=== PATIENT | male | born 1950 | race Caucasian/White ===

== ENCOUNTER 2024-04-11 09:06 | Outpatient (CLI) | payer MEDICARE, BC, SELFPAY ==
--- OUTSIDE RECORDS SUMMARY | 2024-04-11 09:14 | XMS_ITS | Patient Health Record ---
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 Name Role Phone CLARISSA ACUNA Unavailable [phone] Allergies No Known Allergies Reason For Referral No Information Medications Medication SIG (Take, Route, Frequency, Duration) Notes Start Date End Date Status Divalproex Sodium ER 250 MG TAKE TWO TAB LETS BY MOUTH EVERY DAY Oral for 90 Active Tamsulosin HCl 0.4 MG TAKE ONE CAPSULE B Y MOUTH EVERY DAY AFTER A MEAL Oral for 90 Active traZODone HCl 50 MG TAKE TWO TABLETS BY MOUTH AT BEDTIME NEEDED FOR SLEEP Oral for 90 Active DULoxetine HCl 60 MG TAKE ONE CAPSULE BY MOUTH EVERY DAY Oral for 90 Active Warfarin Sodium 5 MG Oral for 90 Active Allopurinol 100 MG Oral for 90 Active Omeprazole 20 MG TAKE ONE CAPSULE BY MOUTH EVERY DAY BEFORE A MEAL Oral for 90 Active Social History Tobacco Use: Social History Observation Description Date Details (start date - stop date) Former Smoker NA - NA Tobacco Use/Smoking Question Answer Notes Are you a: former smoker How long has it been since you last smoked? 5-10 years Alcohol Screen Question Answer Notes Did you have a drink contain ing alcohol in the past year? Yes How often did you have a dri nk containing alcohol in the past year? 2 to 3 times a week (3 points) How many drinks did you have on a typical day when you were drinking in the past year? 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 Problem Gout (43974319) Gout, unspecifie d (M10.9) Active confirmed Problem Localized, primary osteoarthritis of the ankle and/or foot (996210738) Primary osteoarthritis, right ankle and foot (M19.071) Active confirmed Problem Localized, primary osteoarthritis of the ankle and/or foot (430481677) Primary osteoarthritis, left ankle and foot (M19.072) Active confirmed Problem Arthralgia of the ankle and/or foot (436644209) Pain in left ankle and joints of left foot (M25.572) Active confirmed Vital Signs Blood pressure diastolic 80 mm Hg 07/09/2023 Height 5' 8 in 07/09/2023 Blood pressure systolic 130 mm Hg 07/09/2023 Weight 187 lbs 07/09/2023 BMI 28.43 kg/m2 07/09/2023 Procedures Procedure Date Ordered Date Performed Result Body Sit e Routine Foot Care ( Nails, Calluses) 07/09/2023 07/09/2023 N/A Encounters Encounter Location Date Provider Diagnosis [facility] [address] [facility] [address] [place] [address] 05/19/2023 CLARISSA PREBISH Gout, unspecified M1 0.9 ; Acquired keratosis [keratoderma] palmaris et plantaris L85.1 ; Pain in left ankle and joints of left foot M25.572 ; Primary osteoarthritis, right ankle and foot M19.071 and Primary osteoarthritis, left ankle and foot M19.072 [facility] [address] [place] [address] 07/09/2023 CLARISSA PREBISH Gout, unspecified M1 0.9 ; Atherosclerosis of [place] arteries of extremities with rest pain, bilateral legs I70.223 ; Acquired keratosis [keratoderma] palmaris et plantaris L85.1 ; Pain in left ankle and joints of left foot M25.572 ; Primary osteoarthritis, right ankle and foot M19.071 ; Primary osteoarthritis, left ankle and foot M19.072 ; Tinea unguium B35.1 ; Pain in right toe(s) M79.674 and Pain in left toe(s) M79.675 Assessments Encounter Date Diagnosis (ICD Code) Assessment Notes Treat ment Notes Treatment Clinical Notes 05/19/2023 Acquired keratosis [keratoderma] palmaris et plantaris (ICD-10 - L85.1) 05/19/2023 Gout, unspecified (ICD-10 - M10.9) The patient's callus was debrided without incident. Fungal debris was excavated from the nail borders. Discussed proper foot care at home including daily foot checks. Educated the patient on the importance of strict watch over the advancement of the patient's medical condition. Using good supportive shoes with inserts or bracing. Moisturize skin daily. F/u prn. 07/09/2023 Atherosclerosis of [place] arteries of extremities with rest pain, bilateral legs (ICD-10 - I70.223) 07/09/2023 Gout, unspecified (ICD-10 - M10.9) 07/09/2023 Acquired keratosis [keratoderma] palmaris et plantaris (ICD-10 - L85.1) The patient's toe nails were debrided without incident. Fungal debris was excavated from the nail borders. Discussed proper foot care at home including daily foot checks. Educated the patient on the importance of strict watch over the advancement of the patient's medical condition. Using good supportive shoes with inserts or bracing. Moisturize skin daily. 05/19/2023 Pain in left ankle a nd joints of left foot (ICD-10 - M25.572) 07/09/2023 Pain in left ankle a nd joints of left foot (ICD-10 - M25.572) 05/19/2023 Primary osteoarthritis, right ankle and foot (ICD-10 - M19.071) 05/19/2023 Primary osteoarthritis, left ankle and foot (ICD-10 - M19.072) 07/09/2023 Primary osteoarthritis, right ankle and foot (ICD-10 - M19.071) 07/09/2023 Primary osteoarthritis, left ankle and foot (ICD-10 - M19.072) 07/09/2023 Tinea unguium (ICD-1 0 - B35.1) 07/09/2023 Pain in right toe(s) (ICD-10 - M79.674) 07/09/2023 Pain in left toe(s) (ICD-10 - M79.675) Plan Of Treatment No Information Insurance Providers Payer Name Payer Address Payer Phone Subscriber Number Group Number Insured Name Patient Relationship to Insured Coverage Start Date Coverage End Date MEDICARE PART B [address] [place] [id number] Adán Choi Self - patient is the insured [facility] PPO/HMO [address] [place], [place] [id number] Adán Choi Self - patient is the insured Medical (General) History Medical History History ICD Code anxiety depression Surgical History Surgery Date(Month/Year) Rt shoulder Rt hip left leg Hospitalization History Reason Date(Month/Year) Hip Surgery leg surgery shoulder surgery
--- OUTSIDE RECORDS SUMMARY | 2024-04-11 09:14 | XMS_ITS | Data Portability ---
Author Organization [facility] - [place], [place] (Inactive) Address [address] [place] [address] Care Team Providers Care Overhead Door Technician Name Role Phone PHILIPP DIANA Primary Care Provider [phone] Assessment No assessment recorded. Plan of Treatment Reminders Order Date Submit Date Provider Last Modified By Organization Details Last Modified Time Details Appointments Est Patient 2023 08:40A Lucero Diana, CAR MECHANIC HELPER Not available Not available Not available AWV 20 2024 11:00A Lucero Diana NP Not available Not available Not available Lab prothromb in time 2022 023 PARADIS [facility], [address] [place] [address], [address], 06/27/2022 09:38:04 prothromb in time 2022 023 TINO [facility], [address] [place], [address], 07/14/2022 09:24:57 uric acid, serum or plasma 2022 023 [email or web address] [facility], [address] [place], [address], 06/01/2023 17:45:38 prothromb in time 2022 023 [email or web address] [facility], [address], [place], [address], 06/01/2023 17:45:37 CBC w/ auto diff 2022 023 [email or web address] [facility], [address], [place], [address], 06/01/2023 17:45:38 lipid panel, serum 2022 023 [email or web address] [facility], [address], [place], [address], 06/01/2023 17:45:38 CMP, serum or plasma 2022 023 TINO [facility], [address], [place], [address], 05/25/2023 13:16:07 TSH, ultra-sen sitive, serum 2022 023 [email or web address] [facility], [address], [place], [address], 06/01/2023 17:45:38 T4, free, serum 2022 023 [email or web address] [facility], [address], [place], [address], 06/01/2023 17:45:39 prothromb in time 2023 024 TINO [facility], [address], [place], [address], 08/03/2023 08:25:01 Referral None recorded. Procedures None recorded. Surgeries None recorded. Imaging None recorded. Medication Orders Medrol (John Paul) 4 mg tablets in a dose pack 2023 024 TINO [facility], [address] [place] [address], [place] ([place], [address], 07/26/2023 14:08:03 azithromy rafaela 250 mg tablet 2023 024 [email or web address] [facility], [address] [place] [address], [place], [address], 08/02/2023 13:24:43 allopurin ol 100 mg tablet 2023 024 [email or web address] [facility], [address] [place] [address], [place], [address], 08/02/2023 14:15:54 Patient TargetsNo targets recorded. Patient Instructions Encounter Date Encounter Id Patient Instructions Last Modified By Organization Details Last Modified Time 05/24/2023 [id number] learning about frailty Not available 05/24/2023 13:30:59 medical record request* [email or web address] Not available 06/08/2023 16:32:11 medical record request* [email or web address] Not available 06/08/2023 16:32:11 It was good to s ee you in the office today for your Medicare Annual Wellness Visit. You have been provided some information on healthy nutrition, including a diet rich in fruits and vegetables, minimizing simple carbohydrates, salt, and saturated fats. I want to encourage regular cardiovascular exercise such as walking at least 30 minutes daily, 5 times per week. Please remember to schedule any preventive health measures that we talked about today. You have also been provided education on fall prevention and community-based lifestyle interventions to help reduce health risks and promote healthy living in your Annual Wellness folder. Screening Recommendations 1. Vaccines Pneumonia: {{N/A Ordered Recom mended today Next one No further need* Pt. refused - all risks outlined.}} Influenza: {{N/A Ordered Recom mended today This Fall Next Fall* Pt. refused - all risks outlined.}} 2. Colorectal Cancer Screening: {{Colonoscopy (every 10 years) Cologuard (every 3 years) IFOB (every year)}} {{Ordered Recommend ed today Next Screening No further screening necessary at this time Pt. refused - all risks outlined.*}} 3. Annual Prostate Screening 4. Annual Depression Screening 5. Annual Alcohol Screening 6. Annual Fall Risk Screening 7. Annual Health Risk Assessment Not available 05/24/2023 13:33:22 07/26/2023 [id number] advance care planning: care instructions Not available 07/26/2023 13:58:42 advance directiv es: care instructions Not available 07/26/2023 13:58:42 medical record request* [email or web address] Not available 08/02/2023 11:55:03 dementia: care instructions Not available 07/26/2023 14:05:01 learning about m ood disorders Not available 07/26/2023 13:58:42 learning about depression screening Not available 07/26/2023 13:58:42 learning about frailty Not available 07/26/2023 13:58:42 medical record request* [email or web address] Not available 08/02/2023 11:55:10 upper respirator y infection (cold): care instructions Not available 07/26/2023 14:07:56 It was good to see you in the office today for your Medicare Annual Wellness Visit. You have been provided some information on healthy nutrition, including a diet rich in fruits and vegetables, minimizing simple carbohydrates, salt, and saturated fats. I want to encourage regular cardiovascular exercise such as walking at least 30 minutes daily, 5 times per week. Please remember to schedule any preventive health measures that we talked about today. You have also been provided education on fall prevention and community-based lifestyle interventions to help reduce health risks and promote healthy living in your Annual Wellness folder. Screening Recommendations 1. Vaccines Pneumonia: {{N/A Ordered Recom mended today Next one No further need* Pt. refused - all risks outlined.}} Influenza: {{N/A Ordered Recom mended today This Fall Next Fall* Pt. refused - all risks outlined.}} 2. Colorectal Cancer Screening: {{Colonoscopy (every 10 years) Cologuard (every 3 years) IFOB (every year)}} {{Ordered Recommend ed today Next Screening No further screening necessary at this time Pt. refused - all risks outlined.*}} 3. Annual Prostate Screening 4. Annual Depression Screening 5. Annual Alcohol Screening 6. Annual Fall Risk Screening 7. Annual Health Risk Assessment Not available 07/26/2023 14:05:25 Reason for Referral None Reported. Results Created Date Observation Date Name Description Value Unit Range Abnormal Flag Note LastModifiedBy Organization Detail LastModifiedTime 06/26/19 23 06/27/2022 PROTH ROMBI N TIME (PT) INR 1.3 0.9-1. 2 above high normal Refer ence inter ke is for non-a ntico agula rosibel patie nts. Sugge sted INR thera peuti c range for Vitam in K antag onist thera py: Stand amy Dose (mode rate inten sity thera peuti c range ): 2.0 - 3.0 Highe r inten sity thera peuti c range 2.5 - 3.5 Not Available [facility] ([facility]) [address] [place], [address], 06/27/2022 09:38:03 06/26/19 23 06/27/2022 PROTH ROMBI N TIME (PT) prothrombin time 13.2 sec 9.1-12 .0 above high normal Not Available [facility] ([facility]) [address] [place], [address], 06/27/2022 09:38:03 07/13/19 23 07/14/2022 PROTH ROMBI N TIME (PT) PROTI ME W/INR INR 1.8 0.9-1. 2 high Refer ence inter ke is for non-a ntico agula rosibel patie nts. Sugge sted INR thera peuti c range for Vitam in K antag onist thera py: Stand amy Dose (mode rate inten sity thera peuti c range ): 2.0 - 3.0 Highe r inten sity thera peuti c range 2.5 - 3.5 Not Available [facility] [address] [place], [address], 07/14/2022 09:24:57 07/13/1907/14/2022 PROTH ROMBI N TIME (PT) PROTI ME W/INR prothrombin time 18.0 sec 9.1-12 .0 high Not Available [facility] [address] [place], [address], 07/14/2022 09:24:57 07/30/1907/31/2022 PROTH ROMBI N TIME (PT) PROTI ME W/INR INR 1.4 0.9-1. 2 high Refer ence inter ke is for non-a ntico agula rosibel patie nts. Sugge sted INR thera peuti c range for Vitam in K antag onist thera py: Stand amy Dose (mode rate inten sity thera peuti c range ): 2.0 - 3.0 Highe r inten sity thera peuti c range 2.5 - 3.5 Not Available [facility] [address], [address], 07/31/2022 09:25:47 07/30/19 23 07/31/2022 PROTH ROMBI N TIME (PT) PROTI ME W/INR prothrombin time 14.2 sec 9.1-12 .0 high Not Available [facility] [address], [address], 07/31/2022 09:25:47 08/15/19 23 08/15/2022 PROTH ROMBI N TIME (PT) PROTI ME W/INR INR 3.4 0.9-1. 2 high Refer ence inter ke is for non-a ntico agula rosibel patie nts. Sugge sted INR thera peuti c range for Vitam in K kristin ontaj thera py: Stand amy Dose (mode rate inten sity thera peuti c range ): 2.0 - 3.0 Highe r inten sity thera peuti c range 2.5 - 3.5 Not Available [facility] [address] , [place], [address], 08/15/2022 10:18:35 08/15/19 23 08/15/2022 PROTH ROMBI N TIME (PT) PROTI ME W/INR prothrombin time 35.1 sec 9.1-12 .0 high Not Available [facility] [address], [place], [address], 08/15/2022 10:18:35 09/01/19 23 09/01/2022 PROTH ROMBI N TIME (PT) INR 1.7 0.9-1. 2 above high normal Refer ence inter ke is for non-a ntico agula rosibel patie nts. Sugge sted INR thera peuti c range for Vitam in K kristin ontaj thera py: Stand amy Dose (mode rate inten sity thera peuti c range ): 2.0 - 3.0 Highe r inten sity thera peuti c range 2.5 - 3.5 Not Available [facility] ([facility]) [address] [place], [address], 09/01/2022 09:38:22 09/01/19 23 09/01/2022 PROTH ROMBI N TIME (PT) prothrombin time 18.1 sec 9.1-12 .0 above high normal Not Available [facility] ([facility]) [address] [place], [address], 09/01/2022 09:38:22 05/24/20 23 05/25/2023 PROTH ROMBI N TIME (PT) PROTI ME W/INR INR 2.4 0.9-1. 2 high Refer ence inter ke is for non-a ntico agula rosibel patie nts. Sugge sted INR thera peuti c range for Vitam in K antag onist thera py: Stand amy Dose (mode rate inten sity thera peuti c range ): 2.0 - 3.0 Highe r inten sity thera peuti c range 2.5 - 3.5 Not Available [facility] [address] [place], [address], 05/25/2023 13:16:07 05/24/20 23 05/25/2023 PROTH ROMBI N TIME (PT) PROTI ME W/INR prothrombin time 25.1 sec 9.1-12 .0 high Not Available [facility] [address], [address], 05/25/2023 13:16:07 05/24/20 23 05/25/2023 CBC (LAVE NDER) WBC 7.1 x10e3 /uL 3.9 - 10.0 Not Available [facility] [address] , [place], [address], 05/25/2023 13:16:09 05/24/20 23 05/25/2023 CBC (LAVE NDER) RBC 4.71 x10e6 /uL 3.93 - 6.08 Not Available [facility] [address] , [place], [address], 05/25/2023 13:16:09 05/24/20 23 05/25/2023 CBC (LAVE NDER) hemoglobin 14.3 g/dL 11.2 - 17.5 Not Available [facility] [address] [place], [address], 05/25/2023 13:16:09 05/24/20 23 05/25/2023 CBC (LAVE NDER) hematocrit 43.6 % 34.2 - 51.4 Not Available [facility] [address], [place], [address], 05/25/2023 13:16:09 05/24/20 23 05/25/2023 CBC (LAVE NDER) MCV 93 fL 79 - 100 Not Available [facility] [address], [place], [address], 05/25/2023 13:16:09 05/24/20 23 05/25/2023 CBC (LAVE NDER) MCH 30.4 pg 25.6 - 32.3 Not Available [facility] [address], [place], [address], 05/25/2023 13:16:09 05/24/20 23 05/25/2023 CBC (LAVE NDER) MCHC 32.8 % 32.2 - 36.5 Not Available [facility] [address], [place], [address], 05/25/2023 13:16:09 05/24/20 23 05/25/2023 CBC (LAVE NDER) RDW 14.2 fL 11.6 - 14.4 Not Available [facility] [address], [place], [address], 05/25/2023 13:16:09 05/24/20 23 05/25/2023 CBC (LAVE NDER) segmented neutrophils % 63.1 % 34.0 - 71.1 Not Available [facility] [address], [place], [address], 05/25/2023 13:16:09 05/24/20 23 05/25/2023 CBC (LAVE NDER) lymphocytes % 20.6 % 19.3 - 53.1 Not Available [facility] [address] [place] [address], [place], [address], 05/25/2023 13:16:09 05/24/2005/25/2023 CBC (LAVE NDER) monocytes % 9.4 % 4.7 - 12.5 Not Available [facility] [address] [place] [address], [place], [address], 05/25/2023 13:16:09 05/24/2005/25/2023 CBC (LAVE NDER) eosinophils % 6.3 % 0.7 - 7.0 Not Available [facility] [address] [place] [address], [place], [address], 05/25/2023 13:16:09 05/24/2005/25/2023 CBC (LAVE NDER) basophils % 0.6 % 0.1 - 1.2 Not Available [facility] [address] [place] [address], [place], [address], 05/25/2023 13:16:09 05/24/20 23 05/25/2023 CBC (LAVE NDER) segmented neutrophils # 4.49 x10e3 /uL 1.56 - 6.13 Not Available [facility] [address] [place] [address], [address], 05/25/2023 13:16:09 05/24/20 23 05/25/2023 CBC (LAVE NDER) lymphocytes # 1.47 x10e3 /uL 1.18 - 3.74 Not Available [facility] [address] [place] [address], [place], [address], 05/25/2023 13:16:09 05/24/20 23 05/25/2023 CBC (LAVE NDER) monocytes # 0.67 x10e3 /uL 0.24 - 0.86 Not Available [facility] [address] [place] [address], [place], [address], 05/25/2023 13:16:09 05/24/20 23 05/25/2023 CBC (LAVE NDER) eosinophils # 0.45 x10e3 /uL 0.05 - 0.54 Not Available [facility] [address] [place] [address], [place], [address], 05/25/2023 13:16:09 05/24/20 23 05/25/2023 CBC (LAVE NDER) basophils # 0.04 x10e3 /uL 0.01 - 0.08 Not Available [facility] [address] [place] [address], [place], [address], 05/25/2023 13:16:09 05/24/20 23 05/25/2023 CBC (LAVE NDER) platelets 134 x10e3 /uL 140 - 420 low Not Available [facility] [address] [place] [address], [place], [address], 05/25/2023 13:16:09 05/24/20 23 05/25/2023 COMPR EHENS ALEXIA METAB OLIC PANEL (SST) sodium 139 mmol/ L 135 - 145 Not Available [facility] [address] [place] [address], [address], 05/25/2023 13:16:11 05/24/20 23 05/25/2023 COMPR EHENS ALEXIA METAB OLIC PANEL (SST) potassium 4.1 mmol/ L 3.5 - 5.2 Not Available [facility] [address] [place] [address], [place], [address], 05/25/2023 13:16:11 05/24/20 23 05/25/2023 COMPR EHENS ALEXIA METAB OLIC PANEL (SST) chloride 105 mmol/ L 97 - 108 Not Available [facility] [address] [place] [address], [place], [address], 05/25/2023 13:16:11 05/24/20 23 05/25/2023 COMPR EHENS ALEXIA METAB OLIC PANEL (SST) carbon dioxide 25 mmol/ L 20 - 32 Not Available [facility] [address] [place] [address], [place], [address], 05/25/2023 13:16:11 05/24/20 23 05/25/2023 COMPR EHENS ALEXIA METAB OLIC PANEL (SST) glucose 113 mg/dL 69 - 99 high Not Available [facility] [address] [place] [address], [place], [address], 05/25/2023 13:16:11 05/24/20 23 05/25/2023 COMPR EHENS ALEXIA METAB OLIC PANEL (SST) BUN 12 mg/dL 6 - 26 Not Available [facility] [address] [place] [address], [place], [address], 05/25/2023 13:16:11 05/24/20 23 05/25/2023 COMPR EHENS ALEXIA METAB OLIC PANEL (SST) creatinine 1.0 mg/dL 0.5 - 1.4 Not Available [facility] [address] [place] [address], [place], [address], 05/25/2023 13:16:11 05/24/20 23 05/25/2023 COMPR EHENS ALEXIA METAB OLIC PANEL (SST) eGFR 76.77 mL/mi n >60.00 Not Available [facility] [address] , [place], [address], 05/25/2023 13:16:11 05/24/20 23 05/25/2023 COMPR EHENS ALEXIA METAB OLIC PANEL (SST) SGOT (AST) 20 U/L 12 - 40 Not Available [facility] [address] , [place], [address], 05/25/2023 13:16:11 05/24/20 23 05/25/2023 COMPR EHENS ALEXIA METAB OLIC PANEL (SST) SGPT (ALT) 21 U/L 7 - 52 Not Available [facility] [address] , [place], [address], 05/25/2023 13:16:11 05/24/20 23 05/25/2023 COMPR EHENS ALEXIA METAB OLIC PANEL (SST) alkaline phosphatase 115 U/L 29 - 121 Not Available [facility] [address] , [place], [address], 05/25/2023 13:16:11 05/24/20 23 05/25/2023 COMPR EHENS ALEXIA METAB OLIC PANEL (SST) total bilirubin 0.4 mg/dL 0.3 - 1.1 Not Available [facility] [address] , [place], [address], 05/25/2023 13:16:11 05/24/20 23 05/25/2023 COMPR EHENS ALEXIA METAB OLIC PANEL (SST) calcium 8.6 mg/dL 8.6 - 10.4 Not Available [facility] [address] [place] [address], [place], [address], 05/25/2023 13:16:11 05/24/20 23 05/25/2023 COMPR EHENS ALEXIA METAB OLIC PANEL (SST) albumin 3.8 g/dL 3.5 - 5.8 Not Available [facility] [address] , [place], [address], 05/25/2023 13:16:11 05/24/20 23 05/25/2023 COMPR EHENS ALEXIA METAB OLIC PANEL (SST) total protein 6.0 g/dL 6.0 - 9.0 Not Available [facility] [address] [place] [address], [place], [address], 05/25/2023 13:16:11 05/24/20 23 05/25/2023 LIPID PANEL (SST) cholesterol 176 mg/dL 69 - 200 Not Available [facility] [address] [place] [address], [place], [address], 05/25/2023 13:16:12 05/24/20 23 05/25/2023 LIPID PANEL (SST) triglyceride s 237 mg/dL 29 - 150 high Not Available [facility] [address] , [place], [address], 05/25/2023 13:16:12 05/24/20 23 05/25/2023 LIPID PANEL (SST) HDL 49 mg/dL 22 - 93 Not Available [facility] [address], [place], [address], 05/25/2023 13:16:12 05/24/20 23 05/25/2023 LIPID PANEL (SST) LDL(calculat ed) 80 mg/dL 0 - 130 Not Available [facility] [address] [place] [address], [place], [address], 05/25/2023 13:16:12 05/24/20 23 05/25/2023 LIPID PANEL (SST) cholesterol/ HDL risk(calcula rosibel) 3.6 mg/dL 2.9 - 5.7 Not Available [facility] [address] [place] [address], [place], [address], 05/25/2023 13:16:12 05/24/20 23 05/25/2023 URIC ACID (SST) uric acid 3.4 mg/dL 4.3 - 7.7 low Not Available [facility] [address] [place] [address], [place], [address], 05/25/2023 13:16:14 05/24/20 23 05/25/2023 SPECI MEN INTEG RITY CHECK (LIH) hemolysis 0 0 - 1 Not Available [facility] [address] [place] [address], [place], [address], 05/25/2023 13:16:15 05/24/20 23 05/25/2023 SPECI MEN INTEG RITY CHECK (LIH) icterus 0 0 - 1 Not Available [facility] [address] [place] [address], [place], [address], 05/25/2023 13:16:15 05/24/20 23 05/25/2023 SPECI MEN INTEG RITY CHECK (LIH) lipemia 0 0 - 1 Not Available [facility] [address] [place] [address], [place], [address], 05/25/2023 13:16:15 05/24/20 05/25/2023 TSH (SST) TSH 3.2 uIU/m L 0.5 - 5.3 Not Available [facility] [address] [place] [address], [address], 05/25/2023 13:16:17 05/24/20 23 05/25/2023 FREE T4 (SST) free T4 0.76 uIU/m L 0.62 - 1.12 Bioti n Thera py may inter fere with resul t Not Available [facility] [address] [place] [address], [address], 05/25/2023 13:16:18 05/24/20 23 05/25/2023 PSA (SST) PSA 0.69 NG/mL 0.00 - 4.00 Acces s 2 Hybri tech PSA Not Available [facility] [address], [address], 05/25/2023 13:16:19 06/23/19 24 06/24/2023 PROTH ROMBI N TIME (PT) PROTI ME W/INR INR 2.8 0.9-1. 2 high Refer ence inter ke is for non-a ntico agula rosibel patie nts. Sugge sted INR thera peuti c range for Vitam in K antag onist thera py: Stand amy Dose (mode rate inten sity thera peuti c range ): 2.0 - 3.0 Highe r inten sity thera peuti c range 2.5 - 3.5 Not Available [facility] [address] [place] [address], [address], 06/24/2023 14:20:26 06/23/19 24 06/24/2023 PROTH ROMBI N TIME (PT) PROTI ME W/INR prothrombin time 28.4 sec 9.1-12 .0 high Not Available [facility] [address] [place] [address], [place], [address], 06/24/2023 14:20:26 06/23/19 24 06/24/2023 CBC (LAVE NDER) WBC 7.2 x10e3 /uL 3.9 - 10.0 Not Available [facility] [address] [place] [address], [place], [address], 06/24/2023 14:20:27 06/23/19 24 06/24/2023 CBC (LAVE NDER) RBC 5.16 x10e6 /uL 3.93 - 6.08 Not Available [facility] [address] [place] [address], [place], [address], 06/24/2023 14:20:27 06/23/19 24 06/24/2023 CBC (LAVE NDER) hemoglobin 15.2 g/dL 11.2 - 17.5 Not Available [facility] [address] [place] [address], [place], [address], 06/24/2023 14:20:27 06/23/19 24 06/24/2023 CBC (LAVE NDER) hematocrit 48.7 % 34.2 - 51.4 Not Available [facility] [address] [place] [address], [place], [address], 06/24/2023 14:20:27 06/23/19 24 06/24/2023 CBC (LAVE NDER) MCV 94 fL 79 - 100 Not Available [facility] [address] [place] [address], [place], [address], 06/24/2023 14:20:27 06/23/19 24 06/24/2023 CBC (LAVE NDER) MCH 29.5 pg 25.6 - 32.3 Not Available [facility] [address] [place] [address], [place], [address], 06/24/2023 14:20:27 06/23/19 24 06/24/2023 CBC (LAVE NDER) MCHC 31.2 % 32.2 - 36.5 low Not Available [facility] [address], [place], [address], 06/24/2023 14:20:27 06/23/19 24 06/24/2023 CBC (LAVE NDER) RDW 14.9 fL 11.6 - 14.4 high Not Available [facility] [address] [place] [address], [place], [address], 06/24/2023 14:20:27 06/23/19 24 06/24/2023 CBC (LAVE NDER) segmented neutrophils % 65.9 % 34.0 - 71.1 Not Available [facility] [address] [place] [address], [place], [address], 06/24/2023 14:20:27 06/23/19 24 06/24/2023 CBC (LAVE NDER) lymphocytes % 20.3 % 19.3 - 53.1 Not Available [facility] [address] [place] [address], [place], [address], 06/24/2023 14:20:27 06/23/19 24 06/24/2023 CBC (LAVE NDER) monocytes % 8.5 % 4.7 - 12.5 Not Available [facility] [address], [place], [address], 06/24/2023 14:20:27 06/23/19 24 06/24/2023 CBC (LAVE NDER) eosinophils % 4.9 % 0.7 - 7.0 Not Available [facility] [address] [place] [address], [place], [address], 06/24/2023 14:20:27 06/23/19 24 06/24/2023 CBC (LAVE NDER) basophils % 0.4 % 0.1 - 1.2 Not Available [facility] [address] [place] [address], [place], [address], 06/24/2023 14:20:27 06/23/19 24 06/24/2023 CBC (LAVE NDER) segmented neutrophils # 4.73 x10e3 /uL 1.56 - 6.13 Not Available [facility] [address] [place] [address], [place], [address], 06/24/2023 14:20:27 06/23/19 24 06/24/2023 CBC (LAVE NDER) lymphocytes # 1.46 x10e3 /uL 1.18 - 3.74 Not Available [facility] [address] [place] [address], [place], [address], 06/24/2023 14:20:27 06/23/19 24 06/24/2023 CBC (LAVE NDER) monocytes # 0.61 x10e3 /uL 0.24 - 0.86 Not Available [facility] [address] [place] [address], [place], [address], 06/24/2023 14:20:27 06/23/19 24 06/24/2023 CBC (LAVE NDER) eosinophils # 0.35 x10e3 /uL 0.05 - 0.54 Not Available [facility] [address] [facility] [address], [place], [address], 06/24/2023 14:20:27 06/23/19 24 06/24/2023 CBC (LAVE NDER) basophils # 0.03 x10e3 /uL 0.01 - 0.08 Not Available [facility] [address], [place], [address], 06/24/2023 14:20:27 06/23/19 24 06/24/2023 CBC (LAVE NDER) platelets 140 x10e3 /uL 140 - 420 Not Available [facility] [address], [place], [address], 06/24/2023 14:20:27 07/23/19 24 07/24/2023 PROTH ROMBI N TIME (PT) INR 2.6 0.9-1. 2 above high normal Refer ence inter ke is for non-a ntico agula rosibel patie nts. Sugge sted INR thera peuti c range for Vitam in K antag onist thera py: Stand amy Dose (mode rate inten sity thera peuti c range ): 2.0 - 3.0 Highe r inten sity thera peuti c range 2.5 - 3.5 Not Available [facility] ([facility]) [address] [place], [address], 07/24/2023 13:38:06 07/23/19 24 07/24/2023 PROTH ROMBI N TIME (PT) prothrombin time 26.8 sec 9.1-12 .0 above high normal Not Available [facility] ([facility]) [address] [facility], [place], [address], 07/24/2023 13:38:06 07/23/19 24 07/23/2023 BOZENA Ramírez NOTE please note Commen t The date and/o r time of colle ction was not indic ated on the requi sitio n as requi red by state and [place] law. The date of recei pt of the speci men was used as the colle ction date if not suppl ied. Not Available [facility] ([facility]) [address] [facility], [place], [address], 07/24/2023 13:38:07 08/02/19 24 08/03/2023 PROTH ROMBI N TIME (PT) INR 2.1 0.9-1. 2 above high normal Refer ence inter ke is for non-a ntico agula rosibel patie nts. Sugge sted INR thera peuti c range for Vitam in K antag onist thera py: Stand amy Dose (mode rate inten sity thera peuti c range ): 2.0 - 3.0 Highe r inten sity thera peuti c range 2.5 - 3.5 Not Available [facility] ([facility]) [address] [facility], [place], [address], 08/03/2023 08:25:01 08/02/19 24 08/03/2023 PROTH ROMBI N TIME (PT) prothrombin time 21.5 sec 9.1-12 .0 above high normal Not Available [facility] ([facility]) [address] [place], [address], 08/03/2023 08:25:01 Result Notes None recorded. Problems Name Problem SNOMED Code Status Onset Date Resolution Date Notes Provider Name and Address Organization Details Recorded Time Senile dementia 63074300 Active 2022 Philipp Diana, CAR MECH[employer]IC HEL[employer] [address], [place], [address] , [facility] 13:27:56 Frailty 391992646 Active 2022 Philipp Diana, [employer] [address], [place], [address] , [facility] 3 13:30:52 Recurrent falls 249940674 Active 2022 Philipp Diana NP [address] [facility],[address], [place], [address] , [facility] [place] 3 13:31:46 Deep venous thrombosi s 308036429 Active 2019 Chronic deep vein thrombosi s (PMHx); Relation: Self Note : stable on Warfarin, hx of recurrent DVT Not Available [facility] 2 19:02:52 Chronic pulmonary embolism 13200622033 9108 Active 2019 Chronic pulmonary embolism (PMHx); Relation: Self Note : stable on Warfarin Not Available [facility] 2 19:02:52 Gastroeso phageal reflux disease 040718821 Active 2019 GERD (gastroes ophageal reflux disease) (PMHx); Relation: Self Note : stable, on med Not Available [facility] 2 19:02:52 Senile purpura 73002030 Active 2019 Senile purpura (PMHx); Relation: Self Note : stable on Warfarin Not Available [facility] 2 19:02:53 Benign prostatic hyperplas ia 088078826 Active 2019 BPH (benign prostatic hyperplas ia) (PMHx); Relation: Self Note : stable on med Not Available [facility] 2 19:02:53 Long-term current use of anticoagu lant 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); Relation: Self Not Available [facility] 2 19:02:53 Recurrent major depressiv e episodes 356455747 Active 2019 MDD (major depressiv e disorder) , recurrent episode (PMHx); Relation: Self Note : stable on med Not Available [facility] 2 19:02:53 Gout 04233765 Active 2019 Gout (PMHx); Relation: Self Note : stable on med Not Available [facility] 2 19:02:53 Secondary restless legs syndrome 898199626 Active 2021 Philipp Guanso, CAR MECH[employer]IC HEL[employer] [address], [place], [address] , [facility] 2 13:38:30 Insomnia 847738123 Active 2021 Philipp Diana [employer] [address], [place], [address] , [facility] 2 13:39:47 Generaliz ed anxiety disorder 65746135 Active 2021 Philipp Diana, CAR MECH[employer]IC HEL[employer] [address], [place], [address] , [facility] 2 13:39:49 History of deep vein thrombosi s 096542415 Active 2021 Philipp Diana, [employer] MECH[employer]IC HEL[employer] [address], [place], [address] , [facility] 2 13:40:37 Blood coagulati on disorder 06564203 Active 2021 Philipp Diana, [employer] MECH[employer]IC HEL[employer] [address], [place], [address] , [facility] 2 13:41:31 Hyperlipi demia 04187515 Active 2021 Philipp Diana, [employer] MECH[employer]IC HEL[employer] [address], [place], [address] , [facility] 2 13:42:08 Chronic low back pain 031169599 Active 2021 Philipp Diana, CAR MECH[employer]IC HEL[employer] [address], [place], [address] , [facility] 2 13:43:09 Secondary immune deficienc y disorder 75872465 Active 2022 Philipp Diana, [employer] MECH[employer]IC HEL[employer] [address], [place], [address] , [facility] 3 13:09:56 History of splenecto my 314456630 Active 2022 Philipp Diana NP [address], [place], [address] , [facility] [place] 3 13:10:00 History of pulmonary embolus 942771089 Active 2022 Philipp Diana NP [address], [place], [address] , [facility] 3 13:11:33 Problem Notes None recorded. Procedures Surgical History Date Name Laterality Status Provider Name and Address Organization Details Recorded Time 4 Q Medication Review was completed today 1159F/1160F completed GEOVANNI Kauffman[address], [place], [address], [facility] 08/02/2023 14:27:40 4 Q Medications obtained, updated, or reviewed G8427 completed Philipp Diana NP [address], [place], [address], [facility] 08/02/2023 14:27:42 4 AWV DONE completed Stacy Connors NP [address], [place], [address], [facility] 07/26/2023 13:31:29 4 Q Medication Review was completed today 1159F/1160F completed Stacy Connors NP [address], [place], [address], [facility] 07/26/2023 13:31:29 4 Q Activities of daily living were assessed(functi onal status) 1170F completed Stacy Connors NP [address], [place], [address], [facility] 07/26/2023 13:31:29 4 Q Advanced Care plan not currently documented/will provide plan information today 1124F completed Stacy Connors, GEOVANNI [address], [place], [address], [facility] 07/26/2023 13:31:29 4 AWV 0438/0439 completed Stacy Connors [employer] [address], [place], [address], [facility] 07/26/2023 13:31:29 4 Q Medications obtained, updated, or reviewed G8427 completed Stacy Connors, [employer] MECH[employer]IC HEL[employer] [address], [place], [address], [facility] 07/26/2023 13:31:29 3 AWV DONE completed Philipp Diana, CAR MECH[employer]IC HELPER [address], [place], [address], [facility] 05/24/2023 10:28:58 3 HOLD CODE: TELE [facility] 05/21/2023 11:10:08 3 Q Medication Review was completed today 1159F/1160F completed Philipp Diana, CAR MECH[employer]IC HELPER [address], [place], [address], [facility] 05/24/2023 10:28:58 3 Q Activities of daily living were assessed(functi onal status) 1170F completed Philipp Diana, CAR MECH[employer]IC HELPER [address], [place], [address], [facility] 05/24/2023 10:28:58 3 Q Advanced Care plan not currently documented/will provide plan information today 1124F completed Philipp Diana [employer] ME[employer]IC HEL[employer] [address], [place], [address], [facility] 05/24/2023 10:28:58 3 AWV 0438/0439 completed Philipp Diana NP [address], [place], [address], [facility] 05/24/2023 10:28:58 3 Q Medications obtained, updated, or reviewed G8427 completed Philipp Diana NP [address], [place], [address], [facility] [place] 05/24/2023 10:28:58 3 [id number] reporting statement for [facility] completed Jessy Ramos [facility] [place] 05/21/2023 11:10:08 3 Q BMI is too high G8417 completed Philipp Diana NP [address], [place], [address], [facility] 07/13/2022 13:02:18 3 Q BMI is too high G8417 completed [facility] 06/26/2022 10:25:23 2 AWV DONE completed [facility] [place] 05/22/2022 11:50:19 2 Q Medication Review was completed today 1159F/1160F completed [facility] 05/22/2022 11:50:19 2 Q Activities of daily living were assessed(functi onal status) 1170F completed [facility] 05/22/2022 11:50:19 2 Q Advanced Care plan not currently documented/will provide plan information today 1124F [facility] [place] 05/22/2022 11:50:19 2 Q BMI is too high G8417 completed [facility] [place] 05/22/2022 11:49:55 2 AWV 0438/0439 [facility] 05/22/2022 11:50:19 2 Q Medications obtained, updated, or reviewed G8427 [facility] 05/22/2022 11:50:19 5 Colonoscopy completed Philipp Diana NP [address], [place], [address], [facility] 06/26/2022 13:07:37 Imaging Results None recorded. Procedure Notes None recorded. Medical Equipment None Reported. Allergies Allergen ID Allergen Name Allergen Category Reaction Reaction Severity Criticality Documentation Date Start Date Code Code System Note Provider Name and Address Organization Details Recorded Time 389846 oxycodone medicatio n Not available Not available Not available 08/05/2021 7804 RxNorm React ion: Behav ioral Distu rbanc es; Comme nt: 06/20 - 05/16 - ; Not Available [facility] 2 12:32:45 Medications Name Sig Start Date Stop Date Status Note LastModified by Organization Details LastModified Time Prescriptio n - Change 05/22 completed RX^Im porte d - [facility] in Not Available Not Available Not Available cyclobenzap rine 10 mg tablet TAKE ONE HALF TO ONE TABLET AT BEDTIME FOR MUSCLE SPASMS active Not Available Not Available No t Available atorvastati n 40 mg tablet TAKE ONE TABLET BY MOUTH EVERY DAY active Not Available Not Available No t Available primidone 50 mg tablet TAKE 2 TABLETS BY MOUTH TWICE DAILY 05/24 completed Not Available Not Available Not Available donepezil 5 mg tablet TAKE ONE TABLET BY MOUTH AT BEDTIME FOR 30 DAYS THEN TAKE TWO TABLETS AT BEDTIME 07/26 completed Not Available Not Available Not Available trazodone 50 mg tablet TAKE TWO TABLETS BY MOUTH EVERY DAY AT BEDTIME NEEDED FOR SLEEP active Not Available Not Available No t Available azithromyci n 250 mg tablet TAKE 2 TABLETS (500 MG) BY ORAL ROUTE ONCE DAILY FOR 1 DAY THEN 1 TABLET (250 MG) BY ORAL ROUTE ONCE DAILY FOR 4 DAYS 08/02 completed Not Available Not Available Not Available hydrocodone 5 mg-acetamin ophen 325 mg tablet TAKE ONE TABLET BY MOUTH EVERY 6 HOURS NEEDED FOR PAIN MAX ACETAMINO PHEN DOSE 4000MG / 24HRS 05/24 completed Not Available Not Available Not Available donepezil 10 mg tablet active Not Available Not Available Not Available prednisone 20 mg tablet TAKE TWO TABLETS BY MOUTH EVERY MORNING WITH FOOD FOR 7 DAYS, THEN TAKE ONE TABLET BY MOUTH EVERY MORNING WITH FOOD ON DAYS 8-10 05/22 completed Not Available Not Available Not Available allopurinol 100 mg tablet Take 2 tablets every day by oral route for 90 days. 2023 active Not Available Not Available Not Avai lable tamsulosin 0.4 mg capsule TAKE TWO CAPSULES BY MOUTH EVERY DAY AFTER A MEAL active Not Available Not Available No t Available warfarin 5 mg tablet Take 1 tablet every day by oral route for 90 days. active Not Available Not Available No t Available omeprazole 20 mg capsule,del ayed release TAKE 1 CAPSULE BY MOUTH ONCE DAILY BEFORE A MEAL active Not Available Not Available No t Available hydroxyzine HCl 25 mg tablet TAKE 1 TABLET BY MOUTH EVERY 6 HOURS NEEDED FOR ANXIETY active Not Available Not Available No t Available allopurinol 300 mg tablet TAKE ONE TABLET BY MOUTH EVERY DAY active Not Available Not Available No t Available levofloxaci n 500 mg tablet TAKE ONE TABLET BY MOUTH EVERY DAY FOR 10 DAYS 05/24 completed Not Available Not Available Not Available methylpredn isolone 4 mg tablets in a dose pack Take 1 dose pk every day by oral route with meal(s). active Not Available Not Available No t Available divalproex ER 250 mg tablet,exte nded release 24 hr TAKE 2 TABLETS BY MOUTH ONCE DAILY active Not Available Not Available No t Available duloxetine 60 mg capsule,del ayed release TAKE ONE CAPSULE BY MOUTH EVERY DAY active Not Available Not Available No t Available GaviLyte-G 236 gram-22.74 gram-6.74 gram-5.86 gram oral solution TAKE 4000ML BY MOUTH ONE TIME FOR ONE DOSE. 05/24 completed Not Available Not Available Not Available Flowflex COVID-19 Antigen Home Test kit DIRECTED 07/09 completed Not Available Not Available Not Available allopurinol 200 mg tablet Take 1 tablet every day by oral route at bedtime. 07/13 completed Not Available Not Available Not Available Vitals Date Recorded Body height Body mass index (BMI) Body weight Oxygen saturation Oxygen saturation in Arterial blood by Pulse oximetry Heart rate Systolic blood pressure Diastolic blood pressure Provider Name and Address Organization Details Last Updated DateTime 4 172.72 cm 32.3 kg/m2 45807.2 8 g 94 % 94 % 104 /min 118 mm[Hg] 68 mm[Hg] Jessy Aroraanjo [facility]/[place] 4 13:03:19 Date Recorded Body height Body mass index (BMI) Body weight Body temperature Respiratory rate Oxygen saturation Oxygen saturation in Arterial blood by Pulse oximetry Heart rate Systolic blood pressure Diastolic blood pressure Provider Name and Address Organization Details Last Updated DateTime 3 172.72 cm 31.8 kg/m2 62766.8 1 g 96.4 [degF] 17 /min 94 % 94 % 79 /min 132 mm[Hg] 74 mm[Hg] Klarissa Jain [facility]/[place] 3 11:52:25 Date Recorded Body height Respiratory rate Body mass index (BMI) Body weight Oxygen saturation Oxygen saturation in Arterial blood by Pulse oximetry Heart rate Body temperature Systolic blood pressure Diastolic blood pressure Provider Name and Address Organization Details Last Updated DateTime 3 172.72 cm 16 /min 32.2 kg/m2 99155.5 8 g 95 % 95 % 73 /min 98.2 [degF] 120 mm[Hg] 62 mm[Hg] Hollie Guadarrama [facility]/[place] 3 12:58:59 Date Recorded Body height Provider Name an d Address Organization Details Last Updated DateTime 05/24/2023 172.72 cm [facility] 05/24/2023 10:15:00 Date Recorded Body height Body mass index (BMI) Body weight Heart rate Oxygen saturation Oxygen saturation in Arterial blood by Pulse oximetry Body temperature Systolic blood pressure Diastolic blood pressure Provider Name and Address Organization Details Last Updated DateTime 4 172.72 cm 32.3 kg/m2 66586.6 8 g 106 /min 94 % 94 % 97.3 [degF] 102 mm[Hg] 70 mm[Hg] Dede Conklin [facility]/[place] 4 13:32:13 Social History Question Answer Notes LastModified by Organizat ion Details LastModified Time Tobacco Smoking Status Former Smoker Klarissa Jain null, [facility]/[place] 05/22/2022 11:47:52 Do You Have An Advance Directive? Yes Information not available 05/22/2022 What Is Your Level Of Alcohol Consumption? Occasional Information not available 05/22/2022 Are You Blind Or Do You Have Difficulty Seeing? No Information not available 05/22/2022 Are You Deaf Or Do You Have Serious Difficulty Hearing? No Information not available 05/22/2022 What Type Of Diet Are You Following? REGULAR Information not available 05/22/2022 Do You Have Any Barriers To Taking Your Medications As Prescribed? No Barriers. I Am Able To Take As Prescribed. Information not available 05/22/2022 Have You Had An Unplanned Hospital Admission In The Last Year? No Information not available 05/22/2022 Have You Had An Unplanned Hospital Admission In The Last 30 Days? No Information not available 05/22/2022 Have You Had An ER Visit Since You Were Last Seen? No Information not available 05/22/2022 Do You Have A Medical Power Of Toe Stripper? Yes Information not available 05/22/2022 What Was The Date Of Your Most Recent Tobacco Screening? 08/02/2023 jack Information not available 08/02/2023 Do You Use Your Seat Belt Or Car Seat Routinely? Yes Information not available 05/22/2022 Do You Use Any Illicit Or Recreational Drugs? No Information not available 05/22/2022 Has Tobacco Cessation Counseling Been Provided? No Information not available 05/22/2022 Sex: Unknown Functional Status Question Answer Note LastModified by Organizat ion Details LastModified Time Do you have difficulty walking or climbing stairs? Yes Information not available 05/22/2022 Are you able to walk? YESWOREST Information not available 05/22/2022 Are you able to care for yourself? Yes Information not available 05/22/2022 Do you have difficulty dressing or bathing? No Information not available 05/22/2022 Mental Status Question Answer Note LastModified by Organization D etails LastModified Time Do you have difficulty concentrating, remembering or making decisions? Yes Information no t available 05/22/2022 Family History Nothing Reported. Medical History No medical history recorded. Past Encounters Encounter ID Performer Location Encounter Start Date Encounter Closed Date Diagnosis/Indication Diagnosis SNOMED-CT Code Diagnosis ICD10 Code [id number] Philipp Diana NP [facility] [place] [address] [place] [address] 05/22/2022 11:33:54 05/22/2022 12:29:45 Body mass index 25-29 - overweight 072703840 E66.3 Z68.29 Advance di rective discussed with patient 074763111 Z71.89 Depression screening 171 040750 Z13.31 Benign pro static hyperplasia 723303390 N40.0 Gastroesop hageal reflux disease 291267816 K21.9 Chronic pu lmonary embolism 9095710800 33148 I27.82 Gout 78162679 M10.9 Long-term current use of anticoagulant 440576154 Z79.01 Recurrent major depressive episodes 090037188 F33.9 Senile purpura 41562772 D69.2 Screening for disorder 257752186 Z13.9 Adult heal th examination 814840664 Z00.00 Renewal of prescription 379178136 Z76.0 Secondary restless legs syndrome 233450438 G25.81 Insomnia 252794847 G47.0 0 Generalize d anxiety disorder 65589570 F41.1 History of deep vein thrombosis 879940882 Z86.718 Blood coag ulation disorder 27923251 D68.9 Hyperlipidemia 93602671 E78.5 Chronic low back pain 27 5331042 M54.50 [id number] Philipp Diana NP [facility] [address] [place] [address] 06/26/2022 11:31:22 06/26/2022 12:10:25 Obesity 782739475 E66.9 Z68.31 Recurrent major depressive episodes 709586229 F33.9 Depression screening 171 412821 Z13.31 Benign pro static hyperplasia 287141063 N40.0 Gastroesop hageal reflux disease 891397606 K21.9 Gout 94364243 M10.9 Long-term current use of anticoagulant 499425371 Z79.01 Senile purpura 85760344 D69.2 Screening for disorder 559312553 Z13.9 Secondary restless legs syndrome 427277214 G25.81 Insomnia 173862218 G47.0 0 Generalize d anxiety disorder 73846228 F41.1 History of deep vein thrombosis 548706248 Z86.718 Hyperlipidemia 86432378 E78.5 Chronic low back pain 27 4031599 M54.50 History of splenectomy 619720289 Z90.81 Secondary immune deficiency disorder 54692848 D84.81 History of pulmonary embolus 058790616 Z86.711 Screening procedure 2012 5006 Z13.9 [id number] Philipp Diana NP [facility] [address] [place] [address] 07/13/2022 12:36:49 07/13/2022 15:36:33 Obesity 794613869 E66.9 Z68.31 Recurrent major depressive episodes 981985592 F33.9 Depression screening 171 254904 Z13.31 Benign pro static hyperplasia 592784764 N40.0 Gastroesop hageal reflux disease 145815943 K21.9 Gout 41905614 M10.9 Long-term current use of anticoagulant 884472155 Z79.01 Senile purpura 83202825 D69.2 Screening for disorder 501313629 Z13.9 Secondary restless legs syndrome 466065810 G25.81 Insomnia 406471401 G47.0 0 Generalize d anxiety disorder 74097398 F41.1 History of deep vein thrombosis 680459055 Z86.718 Hyperlipidemia 29658705 E78.5 Chronic low back pain 27 5149547 M54.50 History of splenectomy 608586240 Z90.81 Secondary immune deficiency disorder 20957078 D84.81 History of pulmonary embolus 514510187 Z86.711 [id number] Philipp OzGEOVANNI mix [facility] [place] [id number] [place] [address] 05/24/2023 10:09:44 05/26/2023 03:11:46 Depression screening 359470321 Z13.31 Advance di rective discussed with patient 843822339 Z71.89 Benign pro static hyperplasia 877693687 N40.0 Gastroesop hageal reflux disease 149113974 K21.9 Chronic pu lmonary embolism 3690875404 59335 I27.82 Gout 80565550 M10.9 Long-term current use of anticoagulant 127527418 Z79.01 Recurrent major depressive episodes 924769671 F33.9 Senile purpura 84268169 D69.2 Screening for disorder 052718673 Z13.9 Secondary restless legs syndrome 130635512 G25.81 Insomnia 017231914 G47.0 0 Generalize d anxiety disorder 53578514 F41.1 History of deep vein thrombosis 010925807 Z86.718 Blood coag ulation disorder 83611703 D68.9 Hyperlipidemia 27196851 E78.5 Chronic low back pain 27 9131749 M54.50 Senile dementia 92625163 F03.90 At [facility] ed risk for falls 546347288 Z91.81 Urine screening due 1712 18021 Z78.9 Pain 86099331 R52 Recurrent falls 83627488 2 R29.6 Frailty 849745777 R54 [id number] Stacy Connors NP [facility] [place] [address] [place] [address] 07/26/2023 13:19:15 07/29/2023 01:31:30 Advance directive discussed with patient 175162387 Z71.89 Depression screening positive 1189250035 57483 R45.89 Z13.31 Benign pro static hyperplasia 786043815 N40.0 Gastroesop hageal reflux disease 610368174 K21.9 Chronic pu lmonary embolism 0729638533 35982 I27.82 Gout 03181850 M10.9 Long-term current use of anticoagulant 817424413 Z79.01 Recurrent major depressive episodes 550008360 F33.9 Senile purpura 77393969 D69.2 Screening for disorder 954495558 Z13.9 Secondary restless legs syndrome 292140551 G25.81 Insomnia 349596867 G47.0 0 Generalize d anxiety disorder 25107998 F41.1 History of deep vein thrombosis 875349037 Z86.718 Blood coag ulation disorder 50403251 D68.9 Hyperlipidemia 74476425 E78.5 Chronic low back pain 27 9499799 M54.50 Senile dementia 45200781 F03.90 At [facility] ed risk for falls 484112943 Z91.81 Urine screening due 1712 16219 Z78.9 Pain 78449219 R52 Recurrent falls 90622303 2 R29.6 Frailty 546064284 R54 Senile dementia 33905646 F03.90 Secondary immune deficiency disorder 53666874 D84.81 Upper resp iratory infection 82126858 J06.9 [id number] Philipp Diana NP [facility] [address] [place] [address] 08/02/2023 12:58:21 08/05/2023 02:36:03 Depression screening 801554696 Z13.31 Long-term current use of anticoagulant 799397973 Z79.01 Gout 17157277 M10.9 Benign pro static hyperplasia 470150706 N40.0 Gastroesop hageal reflux disease 089374877 K21.9 Recurrent major depressive episodes 899016369 F33.42 Senile purpura [id number] D69.2 Screening for disorder [id number] Z13.9 Secondary restless legs syndrome [id number] G25.81 Insomnia 578807323 G47.0 0 Generalize d anxiety disorder 30218010 F41.1 History of deep vein thrombosis [id number] Z86.718 Blood coag ulation disorder 68332978 D68.9 Hyperlipidemia 77037574 E78.5 Chronic low back pain 27 1545562 M54.50 Senile dementia 55995995 F03.90 Recurrent falls 46109141 2 R29.6 Frailty 907107196 R54 Secondary immune deficiency disorder 17066111 D84.81 History of splenectomy 780450001 Z90.81 Chronic pu lmonary embolism [id number] 30527 I27.82 Medication review done 102941649 Z76.89 Health Concerns Section Related Observation LastModified by Organization Detai ls LastModified Time None Recorded Concern Status LastModified by Organization Details LastModified Time None Recorded Advance Directives Directive Y: Payers Encounter Date Sequence Insurance Name Policy Number Policy Panda Covered Member ID Panda Member ID Guarantor Name 06/26/2022 1 [place] Clement A Choi [id number] Clement A Choi 06/26/2022 1 [place] Clement A Choi [id number] Clement A Choi 07/13/2022 1 [place] Clement [place] Choi [id number] Clement A Choi 07/13/2022 1 [place] Clement A Choi [id number] Clement A Choi 05/24/2023 1 [place] Clement [place] Choi [id number] Clement A Choi 05/24/2023 1 [place] Clement A Choi [id number] Clement A Choi 07/26/2023 1 [place] Clement A Choi [id number] Clement A Choi 08/02/2023 1 [place] Clement A Choi [id number] Clement A Choi Notes Date Note Type Note Provider Name and Address Organization Details Recorded Time 06/26/2022 text/html HPI Notes: Patie nt here for INR check previous INR 1.4, dose adjusted has recurrent DVT and hx of PE denies headache, dizziness, vision changes, fever, chills, SOB, chest pain, palpitations, n/v, diarrhea no unusual bleeding Philipp Diana NP [address], [place], [address], [facility] [place] 06/26/2022 13:14:46 07/13/2022 text/html HPI Notes: Patie nt here for INR check previous INR 1.3, dose adjusted has recurrent DVT and hx of PE denies headache, dizziness, vision changes, fever, chills, SOB, chest pain, palpitations, n/v, diarrhea no unusual bleeding Philipp Diana NP [address], [place], [address], [place] [facility] [place] 07/13/2022 13:10:56 05/24/2023 text/html HPI Notes: Medic are Annual Wellness Visit Reported by patient. Diet and Nutrition: healthy diet; discussed vitamin and supplement use; discussed portion control Fracture Risk: no history of fractures; no previous musculoskeletal injuries Physical Activity: does not exercise on a regular basis; decreased physical activity; discussed weightbearing activities Depression Risk: never feels sad, empty, or tearful; no loss of interest in activities; no significant changes in weight; no sleep disturbances or insomnia; no agitation; no loss of energy; no feelings of worthlessness or guilt; no thoughts of suicide; history of depression Orientation: no disorientation to time; no disorientation to date; no disorientation to place Concentration and Memory: no decreased concentrating ability; memory lapses or loss; forgetting words Speech/Motor difficulties: no speech difficulties; no difficulty with fine manipulative tasks; no difficulty writing/copying; does not knock things over when trying to pick them up; slowed reaction time Hearing: no loss of hearing Vision: no vision problems Activities of Daily Living: able to bathe with limited or no assistance; able to contol urination and bowels; able to dress with limited or no assistance; able to feed self with limited or no assistance; able to get out of chair or bed with limited or no assistance; able to groom with limited or no assistance; able to toilet with limited or no assistance Instrumental Activities of Daily Living: able to do house work with limited or no assistance; able to grocery shop with limited or no assistance; able to manage medications with limited or no assistance; able to manage money with limited or no assistance; able to prepare meals with limited or no assistance; able to use the phone with limited or no assistance Falls Risk Assessment: no dizziness/vertigo; fall(s) in the past year 4; frequent falls while walking; injury with fall Home Safety: reviewed sun protection; no unsafe kenan hazzards; no unsafe gas appliances; working smoke/CO detectors; use of seatbelts; has hand bars in the bathroom/shower; good lighting in the home; does not drive anymore Opioid Use Assessment Reported by patient. Current Use of Opioids : no use of opioids (no further questions required) Has the patient tried other pain management modalities: no Notes: has clotting disorder unsure of the dx 2 kids are carrier as well on Warfarin, last INR was 2.4 denies unusual bleeding lives in [place] during the summer spends winter in [place] recently started on Donepezil due to memory issues my brain not working as stated here with daughter supplementing HPI I confirm that I received verbal consent from the patient for the virtual visit. This telemedicine encounter was performed with video enabled for full/partial visit. Location of the Patient: home Location of the Provider: office Names of people participating in the visit: Adán/Philipp The patient's blood pressure was self-reported by using a digitally automated BP cuff: No Patient is here for their Medicare AWV evaluation as well as complete preventative evaluation including full physical exam as well as full review and ACTIVE MANAGEMENT of any chronic medical issues and any new issues reported. Functional status and medical directives as documented in social history. Philipp Diana NP [address] [facility],[address], [place], [address], [facility]/[place] 05/24/2023 13:33:25 07/26/2023 text/html HPI Notes: Medic are Annual Wellness Visit Reported by patient. Diet and Nutrition: healthy diet; discussed vitamin and supplement use; discussed portion control Fracture Risk: no history of fractures; no previous musculoskeletal injuries Physical Activity: does not exercise on a regular basis; decreased physical activity; discussed weightbearing activities Depression Risk: never feels sad, empty, or tearful; no loss of interest in activities; no significant changes in weight; no sleep disturbances or insomnia; no agitation; no loss of energy; no feelings of worthlessness or guilt; no thoughts of suicide; history of depression Orientation: no disorientation to time; no disorientation to date; no disorientation to place Concentration and Memory: no decreased concentrating ability; memory lapses or loss; forgetting words Speech/Motor difficulties: no speech difficulties; no difficulty with fine manipulative tasks; no difficulty writing/copying; does not knock things over when trying to pick them up; slowed reaction time Hearing: no loss of hearing Vision: no vision problems Activities of Daily Living: able to bathe with limited or no assistance; able to contol urination and bowels; able to dress with limited or no assistance; able to feed self with limited or no assistance; able to get out of chair or bed with limited or no assistance; able to groom with limited or no assistance; able to toilet with limited or no assistance Instrumental Activities of Daily Living: able to manage money with limited or no assistance; able to use the phone with limited or no assistance; unable to do house work without assistance; unable to grocery shop without assistance; unable to manage medications without assistance (daughter helps); unable to to prepare meals without assistance Falls Risk Assessment: no dizziness/vertigo; fall(s) in the past year 4; frequent falls while walking; injury with fall Home Safety: reviewed sun protection; no unsafe kenan hazzards; no unsafe gas appliances; working smoke/CO detectors; use of seatbelts; has hand bars in the bathroom/shower; good lighting in the home; does not drive anymore Opioid Use Assessment Reported by patient. Current Use of Opioids : no use of opioids (no further questions required) Has the patient tried other pain management modalities: no Notes: has clotting disorder unsure of the dx 2 kids are carrier as well on Warfarin, last INR was 2.4 denies unusual bleeding [place] in [place] during the summer spends winter in [place] recently started on Donepezil due to memory issues my brain not working as stated here with daughter supplementing HPI Patient is here for their Medicare AWV evaluation as well as complete preventative evaluation including full physical exam as well as full review and ACTIVE MANAGEMENT of any chronic medical issues and any new issues reported. Functional status and medical directives as documented in social history. Patient presents for Symptoms: coughing, sneezing, feelign feverish family at home also sick fatigue Duration: aboutb1-2 weeks Severity: moderate Onset/Timing: constant Worse with: Tried: OTC decongestant, NyQuil denies fever, chills, malaise, CP, dyspnoea ,syncope, nausea/vomiting chronic medical conditions reviewed as outlined in A/P Stacy Connors NP [address] [facility],[address], [place], [address], [facility] 07/26/2023 14:08:06 08/02/2023 text/html HPI Notes: Saurabh nt here for INR check last INR was therapeutic @ 2.6 has recurrent DVT and hx of PE no abnormal bleeding he was seen last week due to URI completed zpack, doing well currently denies headache, dizziness, vision changes, fever, chills, SOB, chest pain, palpitations, n/v, diarrhea also, needing a refill of Allopurinol takes a total of 500 mg daily hx of recurrent flare-ups before, had tophaceous deposits on joints denies flare-ups since taking current dose as stated Philipp Diana, GEOVANNI [address] [facility],[address], [place], [address], [facility] 08/02/2023 14:30:54
== END 2024-04-11 09:07 | disposition home or self-care (01) ==
LOC: INJ CL 09:12
PROVIDERS: PCP Family Medicine; Visit Provider Family Medicine
DX: M54.16 Radiculopathy, lumbar region (principal); M51.369 Other intervertebral disc degeneration, lumbar region without mention of lumbar back pain or lower extremity pain
CPT/HCPCS: 62323; J0702; Q9966

== ENCOUNTER 2024-08-10 06:23 | Outpatient (CLI) | payer MEDICARE, BC, SELFPAY ==
[2024-08-10 07:11] VITALS: BP 125/72; PULSE 74; RESP 14; O2SAT 94
--- NOTE | 2024-08-10 07:34 | PM.ORPRC ---
Procedure Note Date of procedure: 08/10/24 Procedure: PREOPERATIVE DIAGNOSIS: Left hip abductor tendinopathy/greater trochanteric bursitis POSTOPERATIVE DIAGNOSIS: Left hip abductor tendinopathy/greater trochanteric bursitis NAME OF OPERATION: Percutaneous tenotomy SURGEON: Manav Astudillo MD GEOGRAPHIC INFORMATION SYSTEMS MANAGER: Leela Farias PA-C ANESTHESIA: Local ESTIMATED BLOOD LOSS: 0 mL. COMPLICATIONS: None. SPECIMENS: None. DRAINS: None. PREOPERATIVE ANTIBIOTICS: None INDICATIONS: The patient is a 74-year-old with a history of left hip pain secondary to the above diagnoses. Despite appropriate non operative management, they continue to have symptoms. Operative intervention was recommended. The risks, benefits and expected outcomes were discussed in detail. These included but were not limited to: Infection, bleeding, injury to blood vessel or nerve, venous thromboembolism. All questions were answered to their satisfaction. PROCEDURE: The patient was placed in the lateral decubitus position. The left hip was imaged in the long and short axes with the ultrasound transducer. Normal acoustic landmarks were identified. We then sterilely prepped and draped the skin, and used a sterile probe cover with sterile gel. Local anesthesia was established with 10 mL of a solution containing 2 % lidocaine without epinephrine, 0.5% Marcaine without epinephrine and sodium bicarbonate. An 11 blade was used to incise the skin. The Tenex TX 2 micro tip was used to treat the abductor tendon for a total of 4 minutes and 0 seconds. The incision was Steri-Stripped closed. A dry dressing was applied. Sponge and needle counts were correct x2. The patient tolerated the procedure well. There were no apparent complications. They were discharged to home in satisfactory condition. PLAN: The patient may weightbear as tolerates. Ice, Tylenol and ibuprofen can be used for discomfort. They may ramp up activity as the hip will allow. They will follow up in the office in 6 weeks to assess their progress.
[2024-08-10 07:49] VITALS: BP 112/64; PULSE 62; RESP 16; O2SAT 95
== END 2024-08-10 07:50 | disposition home or self-care (01) ==
LOC: US 06:24
PROVIDERS: PCP Family Medicine; Visit Provider Orthopaedic Surgery
DX: M70.62 Trochanteric bursitis, left hip (principal)
CPT/HCPCS: 27006; 76942; J0665

== ENCOUNTER 2025-03-20 06:37 | Outpatient (CLI) | payer MEDICARE, BC, SELFPAY ==
[2025-03-20 06:48] VITALS: BP 112/58; PULSE 56; RESP 16; O2SAT 95
--- NOTE | 2025-03-20 07:33 | P.ORPRC_ITS ---
Procedure Note Date of procedure: 03/20/25 Procedure: PREOPERATIVE DIAGNOSIS: Right hip abductor tendinopathy/greater trochanteric bursitis POSTOPERATIVE DIAGNOSIS: Right hip abductor tendinopathy/greater trochanteric bursitis NAME OF OPERATION: Percutaneous tenotomy SURGEON: Manav Astudillo MD BUSINESS COMPUTERS TEACHER: Leela Farias PA-C ANESTHESIA: Local ESTIMATED BLOOD LOSS: 2 mL. COMPLICATIONS: None. SPECIMENS: None. DRAINS: None. PREOPERATIVE ANTIBIOTICS: None INDICATIONS: The patient is a 75-year-old with a history of right hip pain secondary to the above diagnoses. Despite appropriate non operative management, they continue to have symptoms. Operative intervention was recommended. The risks, benefits and expected outcomes were discussed in detail. These included but were not limited to: Infection, bleeding, injury to blood vessel or nerve, venous thromboembolism. All questions were answered to their satisfaction. PROCEDURE: The patient was placed in the lateral decubitus position. The right hip was imaged in the long and short axes with the ultrasound transducer. Normal acoustic landmarks were identified. We then sterilely prepped and draped the skin, and used a sterile probe cover with sterile gel. Local anesthesia was established with 10 mL of a solution containing 2 % lidocaine without epinephrine, 0.5% Marcaine without epinephrine and sodium bicarbonate. An 11 blade was used to incise the skin. The Tenex TX 2 micro tip was used to treat the abductor tendon for a total of 4 minutes and 12 seconds. The incision was Steri-Stripped closed. A dry dressing was applied. Sponge and needle counts were correct x2. The patient tolerated the procedure well. There were no apparent complications. They were discharged to home in satisfactory condition. PLAN: The patient may weightbear as tolerates. Ice, Tylenol and ibuprofen can be used for discomfort. They may ramp up activity as the hip will allow. They will follow up in the office in 6 weeks to assess their progress.
[2025-03-20 07:36] VITALS: BP 114/61; PULSE 58; RESP 16; O2SAT 96
== END 2025-03-20 07:59 | disposition home or self-care (01) ==
LOC: US 06:39
PROVIDERS: PCP Family Medicine; Visit Provider Orthopaedic Surgery
DX: M70.61 Trochanteric bursitis, right hip (principal)
CPT/HCPCS: 27006; 76942; J0665